=== PATIENT | male | born 2000 | race Asian ===

== ENCOUNTER 2022-05-04 18:53 | Inpatient (IN) ==
[2022-05-04] MEDS ORDERED: MoRPHine SULFATE 10 MG/ML CARP/VIAL IV STA ×2 (19:06→20:59)
[2022-05-04] MEDS ORDERED: SODIUM CHLORIDE 0.9% 1000ML 1,000 ML IV ONE (19:06)
[2022-05-04] MEDS ORDERED: ONDANSETRON INJ 2 MG/ML 2 ML VIAL IV STA (19:06)
--- NOTE | 2022-05-04 19:11 | Emergency Department Note ---
Impression & Plan Appendicitis ED Provider Note Name: BHARGAVI ANG Age: 22 Sex: M Arrives Via: Walk-In Informant: Patient, significant other ED Provider: Allan Silva MD Chief Complaint: Abdominal pain Impression: As per impressions above Medical Decision Makin-year-old healthy male without significant past medical history is on no medications arrived for evaluation of abdominal pain, vomiting, illness. On examination is clear right lower quadrant tenderness palpation. White count is moderately elevated. CT abdomen pelvis reveals acute appendicitis with large stone within the appendix. No evidence of perforation. Patient was given IV Mefoxin for initial management, along with IV pain medications for comfort. General surgery was consulted who agreed with diagnosis and brought patient to the OR for further management. Triage/Nursing Notes reviewed by Me Differentials:Appendicitis, renal colic, pyelonephritis, obstruction, gastroenteritis amongst many other pathologies considered. Vital Signs: reviewed and remarkable for tachycardia Interventions: Normal saline bolus 1 L IV, Zofran 4 mg IV, morphine 6 mg IV x2, Mefoxin 2 g IV Labs:Reviewed and remarkable for elevated white blood cell count, inflammatory findings within urine. CBC, LFTs, BMP, unremarkable otherwise Imaging:CT of the abdomen pelvis without IV contrast as per my interpretation. Large appendix with surrounding inflammatory changes consistent with an perforated acute appendicitis. There is a large stone within the appendix as well. Consults:Discussed case with radiologist who confirmed acute appendicitis. Discussed case with Dr. Edwards of general surgery who agreed and brought patient to the OR. Plan: Disposition: Transfer to our Condition: Good History of Present Illness:22-year-old male arrives for evaluation of abdominal pain. Patient with 24 hours of gradually worsening abdominal pain. Associated with chills, nausea, vomiting and frequent small stools but no diarrhea. No other symptoms. Using Pepto-Bismol without improvement. No previous abdominal surgeries. No trauma or injuries. Past History:Healthy no previous medical issues Home Medications:none Allergies:nkda Vitals:Blood Pressure: 109/74, Pulse 112, RR 18, T 36.7C, O2 99% on RA Physical Exam: GENERAL: Patient is uncomfortable appearing and in moderate distress. EYES: No scleral icterus, unremarkable pupils. RESPIRATORY: No dyspnea. Clear to auscultation and equal bilaterally. No wheeze, no rhonchi. CARDIOVASCULAR: Mild tachycardia.No murmurs, rubs, gallops appreciated. GASTROINTESTINAL: Acute right lower quadrant tenderness to palpation otherwise no tenderness palpation. EXTREMITIES: Normal motion all extremities, no cyanosis, no edema. NEUROLOGIC: Alert and oriented, no focal neurologic deficit appreciated SKIN: No rash, no jaundice, no diaphoresis. PSYCH: Appropriate GCS: 15 ED Course: Times/Reassessments: Patient was eventually comfortable with IV pain medications Allan Silva MD Past Med/Surg History Medical History (Updated 05/05/22 @ 00:59 by Allan Silva MD) Appendicitis Encounter for pre-operative examination Social History Smoking Status: Never smoker Preferred Language: Georgian Feels Safe at Home: Yes Allergies Allergies Allergy/AdvReac Type Severity Reaction Status Date / Time No Known Allergies Allergy Unverified 05/04/22 21:46 Home Meds Home Medications Medication Instructions Recorded Confirmed No Known Home Medications 05/04/22 05/04/22 Results & Data (ED) Vital Signs Vital Signs - 24 hr 05/04/22 18:56 05/04/22 20:06 05/04/22 22:00 Temperature 36.7 C Temperature Source Temporal Artery Scan Pulse Rate 112 H Pulse Rate [Right Finger] 83 112 H Respiratory Rate 18 19 18 Respiratory Effort / Characteristics Non-Labored Non-Labored Respiratory Depth Normal Normal Respiratory Pattern Regular Regular Blood Pressure 109/74 Blood Pressure [Right Arm] 125/80 120/69 Blood Pressure Mean 85 Blood Pressure Mean [Right Arm] 95 86 Pulse Oximetry 99 98 99 Oxygen Delivery Method Room Air Room Air Room Air Sepsis Recent Fever Within 48 Hours No Sepsis New/Unexplained Change in Mental Status No Sepsis Action Taken by Nursing No Action Required 05/04/22 20:30 05/04/22 21:00 05/04/22 21:30 Temperature Temperature Source Pulse Rate Pulse Rate [Right Finger] 109 H 110 H 112 H Respiratory Rate 17 18 18 Respiratory Effort / Characteristics Non-Labored Non-Labored Non-Labored Respiratory Depth Normal Normal Normal Respiratory Pattern Regular Regular Regular Blood Pressure Blood Pressure [Right Arm] 120/83 120/65 122/73 Blood Pressure Mean Blood Pressure Mean [Right Arm] 95 83 89 Pulse Oximetry 99 99 99 Oxygen Delivery Method Room Air Room Air Room Air Sepsis Recent Fever Within 48 Hours Sepsis New/Unexplained Change in Mental Status Sepsis Action Taken by Nursing 05/04/22 22:30 05/04/22 23:00 Temperature Temperature Source Pulse Rate Pulse Rate [Right Finger] 113 H 113 H Respiratory Rate 18 19 Respiratory Effort / Characteristics Non-Labored Non-Labored Respiratory Depth Normal Normal Respiratory Pattern Regular Regular Blood Pressure Blood Pressure [Right Arm] 130/75 121/71 Blood Pressure Mean Blood Pressure Mean [Right Arm] 93 87 Pulse Oximetry 98 98 Oxygen Delivery Method Room Air Room Air Sepsis Recent Fever Within 48 Hours Sepsis New/Unexplained Change in Mental Status Sepsis Action Taken by Nursing Laboratory Data 05/04/22 19:43 05/04/22 19:43 Lab Results 05/04/22 05/04/22 05/04/22 Range/Units 19:43 19:43 21:35 WBC 14.95 H (4.8-10.8) K/ul RBC 4.77 (4.70-6.10) M/uL Hgb 14.7 (14.0-18.0) g/dl Hct 42.5 (42.0-52.0) % MCV 89.1 (80.0-100.0) fL MCH 30.8 (25.0-34.0) pg MCHC 34.6 (32.0-36.0) g/dL RDW Std Deviation 40.7 (36.4-46.3) fL RDW Coeff of Rose 12.3 (11.5-14.5) % Plt Count 237 (130-400) K/uL MPV 9.7 (9.4-12.4) fL Immature Gran % (Auto) 0.5 % Neut % (Auto) 90.6 % Lymph % (Auto) 4.9 % Poinsett % (Auto) 3.7 % Eos % (Auto) 0.1 % Baso % (Auto) 0.2 % Neut # (Auto) 13.55 H (1.40-6.50) K/uL Lymph # (Auto) 0.73 L (1.2-3.4) K/uL [place] # (Auto) 0.56 (0.11-0.59) K/uL Eos # (Auto) 0.01 (0-0.50) K/uL Baso # (Auto) 0.03 (0-0.2) K/uL Immature Gran # (Auto) 0.07 (0.01-0.20) K/uL Sodium 136 (136-145) mmol/L Potassium 3.6 (3.5-5.1) mmol/L Chloride 101 (98-107) mmol/L Carbon Dioxide 28 (21-32) mmol/L Anion Gap 7 (3-11) BUN 10 (6-23) mg/dl Creatinine 0.82 (0.6-1.4) mg/dl Est Cr Clr Drug Dosing 137.9 ml/min Est GFR ( Amer) 146.5 ml/min Est GFR (Non-Af Amer) 126.4 ml/min BUN/Creatinine Ratio 12.2 (10-20) Glucose 139 H (70-99(Fasting)) mg/dl Calcium 10.0 (8.5-10.1) mg/dl Total Bilirubin 1.2 H (0.2-1.0) mg/dl Direct Bilirubin 0.2 (0-0.2) mg/dl AST 11 L (13-39) U/L ALT 10 (7-52) U/L Alkaline Phosphatase 79 (34-104) U/L Total Protein 8.5 H (6.0-8.3) gm/dl Albumin 5.1 H (3.4-5.0) gm/dl Lipase 5 L (11-82) U/L Urine Color Urine Appearance (Clear) Urine pH (4.5-7.5) Ur Specific Polo (1.000-1.030) Urine Protein (Negative) Urine Glucose (UA) (Negative) Urine Ketones (Negative) Urine Blood (Negative) Urine Nitrite (Negative) Urine Bilirubin (Negative) Urine Urobilinogen (Negative) Ur Leukocyte Esterase (Negative) Urine WBC (Auto) (0-5) /hpf Urine RBC (Auto) (0-4) /hpf U Hyaline Cast (Auto) (0-5) /lpf U Epithel Cells (Auto) (0-5) /lpf Urine Bacteria (Auto) (Negative) Ur Renal Epithelial Cell Amorphous Sediment (None Prsent) Urine Mucus (None Prsent) SARS-CoV-2, RNA, NAAT NEGATIVE (NEGATIVE) 05/04/22 Range/Units 23:24 WBC (4.8-10.8) K/ul RBC (4.70-6.10) M/uL Hgb (14.0-18.0) g/dl Hct (42.0-52.0) % MCV (80.0-100.0) fL MCH (25.0-34.0) pg MCHC (32.0-36.0) g/dL RDW Std Deviation (36.4-46.3) fL RDW Coeff of Rose (11.5-14.5) % Plt Count (130-400) K/uL MPV (9.4-12.4) fL Immature Gran % (Auto) % Neut % (Auto) % Lymph % (Auto) % Poinsett % (Auto) % Eos % (Auto) % Baso % (Auto) % Neut # (Auto) (1.40-6.50) K/uL Lymph # (Auto) (1.2-3.4) K/uL [place] # (Auto) (0.11-0.59) K/uL Eos # (Auto) (0-0.50) K/uL Baso # (Auto) (0-0.2) K/uL Immature Gran # (Auto) (0.01-0.20) K/uL Sodium (136-145) mmol/L Potassium (3.5-5.1) mmol/L Chloride (98-107) mmol/L Carbon Dioxide (21-32) mmol/L Anion Gap (3-11) BUN (6-23) mg/dl Creatinine (0.6-1.4) mg/dl Est Cr Clr Drug Dosing ml/min Est GFR ( Amer) ml/min Est GFR (Non-Af Amer) ml/min BUN/Creatinine Ratio (10-20) Glucose (70-99(Fasting)) mg/dl Calcium (8.5-10.1) mg/dl Total Bilirubin (0.2-1.0) mg/dl Direct Bilirubin (0-0.2) mg/dl AST (13-39) U/L ALT (7-52) U/L Alkaline Phosphatase (34-104) U/L Total Protein (6.0-8.3) gm/dl Albumin (3.4-5.0) gm/dl Lipase (11-82) U/L Urine Color Yellow Urine Appearance Turbid A (Clear) Urine pH 8.5 H (4.5-7.5) Ur Specific Polo 1.027 (1.000-1.030) Urine Protein Negative (Negative) Urine Glucose (UA) Negative (Negative) Urine Ketones 1+ H (Negative) Urine Blood 1+ H (Negative) Urine Nitrite Negative (Negative) Urine Bilirubin Negative (Negative) Urine Urobilinogen Negative (Negative) Ur Leukocyte Esterase Negative (Negative) Urine WBC (Auto) 1-5 (0-5) /hpf Urine RBC (Auto) 10-30 H (0-4) /hpf U Hyaline Cast (Auto) 0 (0-5) /lpf U Epithel Cells (Auto) >30 H (0-5) /lpf Urine Bacteria (Auto) Negative (Negative) Ur Renal Epithelial Cell Not Reportable Amorphous Sediment Present A (None Prsent) Urine Mucus Present A (None Prsent) SARS-CoV-2, RNA, NAAT (NEGATIVE) Administered Medications Discontinued Medications Bupivacaine HCl (Bupivacaine 0.5 % 5 Mg/1 Ml Mpf 30ml Vial) Confirm Administered Dose 30 ml .ROUTE .STK-MED ONE Stop: 05/04/22 23:13 Last Admin: 05/05/22 00:31 Dose: 10 ml Documented By: Presley Sodium Chloride (Nss 1000ml) 1,000 mls @ 999 mls/hr IV .Q1H1M ONE Stop: 05/04/22 20:06 Last Infusion: 05/04/22 22:29 Dose: 0 mls/hr Documented By: Admin: 05/04/22 19:46 Dose: 999 mls/hr Documented By: KRISTEN Cefoxitin Sodium (Mefoxin) 2,000 mg in 60 mls @ 100 mls/hr IV NOW STA Stop: 05/04/22 22:47 Last Infusion: 05/04/22 22:52 Dose: 0 mls/hr Documented By: Admin: 05/04/22 22:21 Dose: 100 mls/hr Documented By: KRISTEN Morphine Sulfate (Morphine Sulfate 10 Mg/Ml Carp/Vial) 6 mg IV NOW STA Stop: 05/04/22 19:07 Last Admin: 05/04/22 19:46 Dose: 6 mg Documented By: KRISTEN Morphine Sulfate (Morphine Sulfate 10 Mg/Ml Carp/Vial) 6 mg IV NOW STA Stop: 05/04/22 21:00 Last Admin: 05/04/22 21:38 Dose: 6 mg Documented By: KRISTEN Ondansetron HCl (Ondansetron Inj 2 Mg/Ml 2 Ml Vial) 4 mg IV NOW STA Stop: 05/04/22 19:07 Last Admin: 05/04/22 19:45 Dose: 4 mg Documented By: KMJose Imaging Data Radiologist's Impression: Abdomen/Pelvis CT 05/04/22 20:33 CR Exam(s): CT ABDOMEN + PELVIS Without Contrast EXAM: CT Abdomen and Pelvis Without Intravenous Contrast CLINICAL HISTORY: Reason for exam: RLQ pain. TECHNIQUE: Axial computed tomography images of the abdomen and pelvis without intravenous contrast. Automated exposure control was utilized for the study. A dose lowering technique was utilized adhering to the principles of ALARA. COMPARISON: No relevant prior studies available. FINDINGS: Lung bases: Unremarkable. No mass. No consolidation. ABDOMEN: Liver: Unremarkable. Gallbladder and bile ducts: Unremarkable. No calcified stones. No ductal dilation. Pancreas: Unremarkable. No ductal dilation. Spleen: Unremarkable. No splenomegaly. Adrenals: Unremarkable. No mass. Kidneys and ureters: Unremarkable. No obstructing stones. No hydronephrosis. Stomach and bowel: Unremarkable. No obstruction. No mucosal thickening. PELVIS: Appendix: The appendix is distended and fluid-filled with an appendicolith noted near the appendiceal tip measuring up to 0.8 cm. Bladder: Unremarkable. No stones. Reproductive: Unremarkable as visualized. ABDOMEN and PELVIS: Intraperitoneal space: Unremarkable. No free air. No significant fluid collection. Bones/joints: No acute fracture. No dislocation. Soft tissues: Unremarkable. Vasculature: Unremarkable. No abdominal aortic aneurysm. Lymph nodes: Unremarkable. No enlarged lymph nodes. IMPRESSION: Findings compatible with acute appendicitis without evidence for perforation. There is a 0.8 cm appendicolith at the appendiceal tip. Communications: Verify Receipt Electronically signed by: Henry Jaramillo MD 05/04/22 22:31 PM Discharge Plan Visit Data Chief Complaint: Abdominal Pain Stated Complaint: ABDOMINAL PAIN ED Provider: Allan Silva Discharge Problem: Appendicitis Patient Disposition: Admitted As Inpatient Discharge Instructions Interventions: ED Discharge Assessment Last Done: 05/04/22 23:26
[2022-05-04 20:06] LABS: Hematocrit (blood only) 42.5 % (42.0-52.0); Hemoglobin 14.7 g/dl (14.0-18.0); Mean Corpuscular Hemoglobin 30.8 pg (25.0-34.0); Mean Corpuscular Hgb Conc 34.6 g/dL (32.0-36.0); Mean Corpuscular Volume 89.1 fL (80.0-100.0); Mean Platelet Volume 9.7 fL (9.4-12.4); Platelet Count 237 K/uL (130-400); RDW Coefficient of Variation 12.3 % (11.5-14.5); RDW Standard Deviation 40.7 fL (36.4-46.3); Red Blood Count 4.77 M/uL (4.70-6.10); White Blood Count 14.95 K/ul (4.8-10.8)
[2022-05-04 20:18] LABS: Albumin Level 5.1 gm/dl (3.4-5.0); BUN Creatinine Ratio 12.2 (10-20); Bilirubin Direct 0.2 mg/dl (0-0.2); Bilirubin,Total 1.2 mg/dl (0.2-1.0); Creatinine Clr Calc Pharmacy 137.9 ml/min; Est GFR (African American) 146.5 ml/min; Est GFR (Non-African American) 126.4 ml/min; Potassium 3.6 mmol/L (3.5-5.1); Total Protein 8.5 gm/dl (6.0-8.3)
[2022-05-04 20:24] LABS: Basophils # (auto) 0.03 K/uL (0-0.2); Basophils % (auto) 0.2 %; Eosinophils # (auto) 0.01 K/uL (0-0.50); Eosinophils % (auto) 0.1 %; Immature Granulocytes # (auto) 0.07 K/uL (0.01-0.20); Immature Granulocytes % (auto) 0.5 %; Lymphocytes # (auto) 0.73 K/uL (1.2-3.4); Lymphocytes % (auto) 4.9 %; Monocytes # (auto) 0.56 K/uL (0.11-0.59); Monocytes % (auto) 3.7 %; Neutrophils # (auto) 13.55 K/uL (1.40-6.50); Neutrophils % (auto) 90.6 %
[2022-05-04] MEDS ORDERED: cefOXitin 2,000 MG/60 ML BAG IV STA (22:12)
--- NOTE | 2022-05-04 22:32 | CT Scan Report ---
Exam(s): CT ABDOMEN + PELVIS Without Contrast EXAM: CT Abdomen and Pelvis Without Intravenous Contrast CLINICAL HISTORY: Reason for exam: RLQ pain. TECHNIQUE: Axial computed tomography images of the abdomen and pelvis without intravenous contrast. Automated exposure control was utilized for the study. A dose lowering technique was utilized adhering to the principles of ALARA. COMPARISON: No relevant prior studies available. FINDINGS: Lung bases: Unremarkable. No mass. No consolidation. ABDOMEN: Liver: Unremarkable. Gallbladder and bile ducts: Unremarkable. No calcified stones. No ductal dilation. Pancreas: Unremarkable. No ductal dilation. Spleen: Unremarkable. No splenomegaly. Adrenals: Unremarkable. No mass. Kidneys and ureters: Unremarkable. No obstructing stones. No hydronephrosis. Stomach and bowel: Unremarkable. No obstruction. No mucosal thickening. PELVIS: Appendix: The appendix is distended and fluid-filled with an appendicolith noted near the appendiceal tip measuring up to 0.8 cm. Bladder: Unremarkable. No stones. Reproductive: Unremarkable as visualized. ABDOMEN and PELVIS: Intraperitoneal space: Unremarkable. No free air. No significant fluid collection. Bones/joints: No acute fracture. No dislocation. Soft tissues: Unremarkable. Vasculature: Unremarkable. No abdominal aortic aneurysm. Lymph nodes: Unremarkable. No enlarged lymph nodes. IMPRESSION: Findings compatible with acute appendicitis without evidence for perforation. There is a 0.8 cm appendicolith at the appendiceal tip. Communications: Verify Receipt Electronically signed by: Henry Jaramillo MD 05/04/22 22:31 PM
--- NOTE | 2022-05-04 22:44 | Anesthesiology Consultation ---
Date of Service May 04, 2022 Assessment & Plan (1) Encounter for pre-operative examination: Chart Review Chart Review: Acceptable Risk for Surgery and Patient NOT seen in Pre Admission Testing Consults Requested none History Surgery Operation Date: 05/04/22 23:05 Proposed Procedures p Laparoscopic Appendectomy - Robert Edwards MD, FACS Height/Weight Height: 5 ft 8 in Weight: 76.2 kg Allergies Allergy/AdvReac Type Severity Reaction Status Date / Time No Known Allergies Allergy Unverified 05/04/22 21:46 Medications Home Medications Medication Instructions Recorded Confirmed Last Taken No Known Home Medications 05/04/22 05/04/22 Unknown Past Medical History Medical History (Updated 05/04/22 @ 23:38 by Gaston Garcia MD) Appendicitis Encounter for pre-operative examination Social History Smoking Status: Never smoker Physical Exam Vital Signs Last Vital Signs Temp 36.7 C 05/04/22 18:56 Pulse 113 H 05/04/22 23:00 Resp 19 05/04/22 23:00 BP 121/71 05/04/22 23:00 Pulse Ox 98 05/04/22 23:00 O2 Del Method Room Air 05/04/22 23:00 Testing Laboratory Results 05/04/22 19:43 05/04/22 19:43
--- NOTE | 2022-05-04 22:45 | History & Physical Report ---
Date of Service May 04, 2022 Assessment & Plan (1) Appendicitis: Plan: Patient with acute appendicitis He is scheduled for laparoscopic appendectomy possible open appendectomy We will give him some IV antibiotics History of Present Illness Primary Care Provider: Rust 22-year-old male with severe right lower quadrant pain Patient with CT scan showing a dilated appendix with independent left consistent with acute appendicitis Allergies Allergy/AdvReac Type Severity Reaction Status Date / Time No Known Allergies Allergy Unverified 05/04/22 21:46 Home Medications Medication Instructions Recorded Confirmed Type No Known Home Medications 05/04/22 05/04/22 History Past Med/Surg History Medical History (Updated 05/04/22 @ 22:42 by Gaston Garcia MD) Appendicitis Social History Smoking Status: Never smoker Preferred Language: Yi Feels Safe at Home: Yes Review of Systems All systems reviewed & are unremarkable except as noted in HPI & below Physical Exam Physical Exam: Patient's vital signs are stable He has acute abdominal pain over the point of where his appendix is on CT scan Constitutional: well developed; no acute distress Eyes: + anicteric sclerae Respiratory: normal respiratory effort; no respiratory distress Cardiovascular: Rate/Rhythm: regular rate Gastrointestinal (Abdomen): Inspection/Auscultation: abdomen not distended Musculoskeletal: Head/Neck/Chest: head atraumatic Skin: no rashes, warm and dry Neurologic: awake Psychiatric: Orientation: alert Results & Data ([facility]) Vital Signs (Past 12 Hours) Vital Signs Temp Pulse Pulse Resp BP BP Pulse Ox 05/04/22 22:16 112 H 18 120/69 99 05/04/22 20:06 83 19 125/80 98 05/04/22 18:56 36.7 C 112 H 18 109/74 99 O2 Del Method 05/04/22 22:16 Room Air 05/04/22 20:06 Room Air 05/04/22 18:56 Room Air
[2022-05-04] MEDS ORDERED: ROCURONIUM BROMIDE 10 MG/ML 5 ML VIAL IV ONE (23:00)
[2022-05-04] MEDS ORDERED: PROPOFOL IV EMULSION 10 MG/ML 20 ML VIAL IV ONE (23:00)
[2022-05-04] MEDS ORDERED: LIDOCAINE 2% MPF LOCAL 5 ML VIAL INFIL ONE (23:00)
[2022-05-04] MEDS ORDERED: GLYCOPYRROLATE 0.2 MG/ML VIAL ONE (23:00)
[2022-05-04] MEDS ORDERED: NEOSTIGMINE METHYLSULFATE 1 MG/ML 10ML VIAL ONE (23:00)
[2022-05-04] MEDS ORDERED: ONDANSETRON INJ 2 MG/ML 2 ML VIAL ONE (23:00)
[2022-05-04] MEDS ORDERED: SUCCINYLCHOLINE CHLORIDE 20 MG/ML 10 ML VIAL IV ONE (23:00)
[2022-05-04] MEDS ORDERED: DEXAMETHASONE SOD INJ 4 MG/ML VIAL ONE (23:00)
[2022-05-04] MEDS ORDERED: fentaNYL citrate 100 MCG/2 ML VIAL ONE (23:00)
[2022-05-04] MEDS ORDERED: diphenhydrAMINE 50 MG/ML VIAL ONE (23:01)
[2022-05-04] MEDS ORDERED: MIDAZOLAM HCL 1 MG/ML 2ML VIAL ONE (23:01)
[2022-05-04] MEDS ORDERED: BUPIVACAINE 0.5 % 5 MG/1 ML MPF 30ML VIAL ONE (23:12)
[2022-05-04] MEDS ORDERED: ePHEDrine sulfate 50 MG/ML AMP IV PRN (23:16)
[2022-05-04] MEDS ORDERED: ONDANSETRON INJ 2 MG/ML 2 ML VIAL IV PRN (23:16)
[2022-05-04] MEDS ORDERED: fentaNYL citrate 100 MCG/2 ML VIAL IV PRN (23:16)
[2022-05-04] MEDS ORDERED: HYDROmorphone INJ 1 MG/ML SYRINGE IV PRN (23:16)
[2022-05-04] MEDS ORDERED: ATROPINE SULFATE 0.1 MG/ML 10ML SYR IV PRN (23:16)
[2022-05-04] MEDS ORDERED: PROMETHAZINE HCL 6.25 MG in SODIUM CHLORIDE 0.9% 50 ML IV PRN (23:16)
[2022-05-04] MEDS ORDERED: ACETAMINOPHEN 1,000 MG/100 ML VIAL IV STA (23:16)
[2022-05-04 23:42] LABS: Appearance Urine Turbid (Clear); Bacteria Urine Automated Negative (Negative); Bilirubin Urine Negative (Negative); Blood Urine 1+ (Negative); Color Urine Yellow; Epithelial Cell Urine Auto >30 /lpf (0-5); Glucose Urine UA Negative (Negative); Ketones Urine 1+ (Negative); Leukocyte Esterase Urine Negative (Negative); Nitrite Urine Negative (Negative); Protein Urine Negative (Negative); Specific Gravity Urine 1.027 (1.000-1.030); Urobilinogen Urine Negative (Negative); pH Urine 8.5 (4.5-7.5)
[2022-05-05 00:09] LABS: Amorphous Sediment Urine Present (None Prsent); Cast Urine Automated 0 /lpf (0-5); Mucus Urine Present (None Prsent)
[2022-05-05] MEDS ORDERED: ROCURONIUM BROMIDE 10 MG/ML 5 ML VIAL IV ONE ×2 (00:12)
[2022-05-05] MEDS ORDERED: oxyCODONE HCL IR 5 MG TAB (IMMEDIATE RELEASE) PO PRN (00:38)
[2022-05-05] MEDS ORDERED: ACETAMINOPHEN 1,000 MG/100 ML VIAL IV ONE (00:38)
--- NOTE | 2022-05-05 00:38 | Post Operative Brief Note ---
PG Immediate Post Op with CF Date of Surgery May 05, 2022 Pre & Post Diagnosis Operation Date: 05/04/22 23:05 Pre-Op Diagnosis: acute appendicitis Post-Op Diagnosis: acute appendicitis I identified the patient and participated in the time-out.: Yes Procedure Operation Date: 05/04/22 23:05 Actual Procedures p Laparoscopic Appendectomy(Not Applicable) - Robert Edwards MD, FACS Surgeon Robert Edwards MD, FACS Control Room Technician Nurses Estimated Blood Loss 5 Findings Consistent with Post-Op Diagnosis Patient had acute appendicitis with no abscess Specimens Specimen Description: A. appendix
--- NOTE | 2022-05-05 01:13 | Anesthesiology Progress Note ---
Date of Service May 05, 2022 Anesthesia Post Procedure Vital Signs Vital Signs: Temp Pulse Pulse Pulse Resp BP BP 05/05/22 01:10 99 H 18 115/69 05/05/22 01:00 100 H 18 112/68 05/05/22 00:54 36.2 C L 100 H 20 119/73 05/04/22 23:00 113 H 19 121/71 05/04/22 22:30 113 H 18 130/75 05/04/22 21:30 112 H 18 122/73 05/04/22 21:00 110 H 18 120/65 05/04/22 20:30 109 H 17 120/83 05/04/22 22:00 112 H 18 120/69 05/04/22 20:06 83 19 125/80 05/04/22 18:56 36.7 C 112 H 18 109/74 Pulse Ox O2 Del Method O2 Flow Rate 05/05/22 01:10 100 Oxymask 6 05/05/22 01:00 100 Oxymask 6 05/05/22 00:54 100 Oxymask 9 05/04/22 23:00 98 Room Air 05/04/22 22:30 98 Room Air 05/04/22 21:30 99 Room Air 05/04/22 21:00 99 Room Air 05/04/22 20:30 99 Room Air 05/04/22 22:00 99 Room Air 05/04/22 20:06 98 Room Air 05/04/22 18:56 99 Room Air Pain Intensity Lower Abdomen: Pain Intensity: 7 Transfer of Care Handoff Completed per policy Notes Mental Status: alert / awake / arousable and participated in evaluation Patient Amnestic to Procedure: Yes Nausea / Vomiting: adequately controlled Pain: adequately controlled Airway Patency, RR, SpO2: stable & adequate BP & HR: stable & adequate Hydration State: stable & adequate Anesthetic Complications: no major complications apparent and Pt Satisfied with anesthetic care
[2022-05-05] MEDS ORDERED: HYDROmorphone INJ 0.5 MG/0.5 ML SYR IV PRN (03:12)
[2022-05-05] MEDS ORDERED: ONDANSETRON INJ 2 MG/ML 2 ML VIAL IV PRN (03:12)
[2022-05-05] MEDS ORDERED: SODIUM CHLORIDE 0.9% 1000ML 1,000 ML IV SCH (03:12)
[2022-05-05] MEDS ORDERED: ACETAMINOPHEN 325 MG TAB PO PRN (03:12)
--- NOTE | 2022-05-05 06:49 | Operative Report (OR) ---
DATE OF OPERATION: 05/05/2022. NAME OF OPERATION: Laparoscopic appendectomy. PREOPERATIVE DIAGNOSIS: Acute appendicitis. POSTOPERATIVE DIAGNOSIS: Acute appendicitis. STAFF SURGEON: Robert Edwards MD. ANESTHESIA: General. DESCRIPTION OF PROCEDURE: The patient was brought in the operating room and placed on the operating table in supine position. His abdomen was prepped and draped in the usual fashion. Incision was mad e above the umbilicus, carrying dissection down identifying the fascia, placing a Veress needle, prod ucing pneumoperitoneum, placing an 11-mm port. Under visualization, 5-mm port placed suprapubically and a 12-mm port placed laterally in the left lower quadrant. The appendix was adherent to the retro peritoneum. The base of the appendix was transected using an Endo-WESTLEY stapler. Then, the appendix w as mobilized and the mesoappendix transected using the Endo-WESTLEY stapler. Appendix placed in an Endob ag and removed through the left lower quadrant port site. After appropriate irrigation and hemostasi s, all ports were removed. Fascia at the umbilicus and left lower quadrant closed using 0 Vicryl sut ure. The skin was reapproximated using 4-0 Monocryl suture and then Dermabond used for the umbilical and 5-mm sites and then Steri-Strips for left lower quadrant. The patient was transferred to [facility] in stable condition. Job ID: [id number]
--- NOTE | 2022-05-07 15:01 | Discharge Summary (DS) ---
DATE OF ADMISSION: . DATE OF DISCHARGE: 05/05/2022. PRINCIPAL DIAGNOSIS: Acute appendicitis. HISTORY OF PRESENT ILLNESS: The patient is a 22-year-old male presenting to the Emergency Room with acute abdominal pain and found to have acute appendicitis on CT scan. The patient was taken to the perating room on 05/05/2022, where he underwent laparoscopic appendectomy, which he tolerated well. He was discharged on 05/05/2022. Job ID: [id number]
== END 2022-05-05 10:48 | disposition home or self-care (01) | DRG 343 ==
LOC: ED 18:53 → OR 23:22 → 3W 05-05 00:45
DX: K35.80 Unspecified acute appendicitis